=== PATIENT | female | born 1945 | race Caucasian/White ===

== ENCOUNTER 2017-04-14 23:52 | Inpatient (IN) | payer OTHER ==
[~2017-04-14] VITALS: Ht 154.9 cm; Wt 90.7 kg
[~2017-04-14 23:52] MED LIST: MOBIC7.5 M1 PO
[2017-04-15 00:57] LABS: ABSOLUTE BASOPHIL COUNT 0.1 /CUMM (0.0-0.2); ABSOLUTE EOSINOPHIL COUNT 0 /CUMM (0.0-0.7); ABSOLUTE GRANULOCYTE CT 4.6 /CUMM (1.4-6.5); ABSOLUTE LYMPH COUNT 0.6 /CUMM (1.2-3.4); BASOPHIL % 0.9 % (0.0-2.0); EOSINOPHIL % 0.3 % (0-5); HEMATOCRIT 40.6 % (37-47); MEAN CORPUSCULAR HGB 28.4 PG (27.0-31.0); MEAN CORPUSCULAR HGB CONC 33.9 G/DL (33.0-37.0); MEAN PLATELET VOLUME 7.7 FL (7.4-10.4); PLATELET COUNT 230 /CUMM (130-400); RBC DISTRIBUTION WIDTH 13.8 % (11.5-14.5); RED BLOOD CELL CT 4.84 /CUMM (4.20-5.40); WHITE BLOOD CELL COUNT 6.3 /CUMM (4.8-10.8)
--- NOTE | 2017-04-15 00:58 | ED GENERAL ADULT ---
See Addendum History of Present Illness General Chief Complaint: General Adult Stated Complaint: GENERAL VISIT Source: patient, family, EMS Exam Limitations: no limitations Vital Signs & Intake/Output Vital Signs & Intake/Output Vital Signs Date Time Temp Pulse Resp B/P B/P Pulse O2 O2 Flow FiO2 Mean Ox Delivery Rate 04/15 0744 86 180/74 04/15 0609 97.5 85 20 162/68 96 04/15 0303 81 22 175/73 96 04/15 0142 97.5 94 18 20365 04/15 0046 97.5 94 18 5 Room Air Allergies Coded Allergies: Penicillins (Severe, HIVES 01/12/17) Uncoded Allergies: SEAFOOD (Severe, ABDOMINAL PAIN 01/12/17) Triage Note: PER EMS HAS BEEN CALLED TO HOUSE 3 TIMES TODAY FOR MULTIPLE CALLS YESTERDAY, HAS BEEN MED COMPLIANT SINCE STAYING WITH SON AND DAUGHTER IN [place], PT [facility] [place] Triage Nurses Notes Reviewed? yes Onset: Abrupt Duration: day(s): (1), constant, continues in ED, getting worse Timing: multiple episodes today Injury Environment: home Severity: mild, moderate Severity Numbers: 6 No Modifying Factors: none LMP (ages 10-50): post menopausal : No Patient currently breastfeeds: No HPI: 71-year-old female past medical history of hypertension and chronic pain presents for evaluation after multiple falls. Patient's son reports that EMS was called the patient's house 3 separate times today for falls. Patient states that she had slid out of the chair 3 different times and was unable to get up. She reports that she feels weakness in her legs and pain in her bilateral groin and pelvis. She denies any direct trauma to the area. She states that she was on the ground for 2 hours for the longest time before EMS arrived. No chest pain or shortness of breath she did not hit her head or lose consciousness. She also reports being noncompliant with her medications. She states that her several days ago. She feels like she is unable to walk due to this weakness and pain in her legs. She lives at home by herself. (Buster JANSEN,Torey) Reconcile Medications Clotrimazole (Lotrimin AF) 1 % CREAM..G. 1 FRIDA TOP BID to umbilicus apply to affected area(s) x 10 days Meloxicam (Mobic) 7.5 MG TABLET 1 TAB PO DAILY KNEE PAIN (Deandre ROLAND,Francis Brian) Past History Travel History Traveled to [place] past 21 day No Medical History Any Pertinent Medical History? 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 No (Torey Heller) Review of Systems Review of Systems Constitutional: Reports: weakness. EENTM: Reports: no symptoms. Respiratory: Reports: no symptoms. Cardiovascular: Reports: no symptoms. GI: Reports: see HPI, abdominal pain. Genitourinary: Reports: no symptoms. Musculoskeletal: Reports: see HPI, joint pain, muscle pain. Skin: Reports: no symptoms. Neurological/Psychological: Reports: no symptoms. Hematologic/Endocrine: Reports: no symptoms. Immunologic/Allergic: Reports: no symptoms. All Other Systems: Reviewed and Negative (Torey Heller) Physical Exam Physical Exam General Appearance: well developed/nourished, no apparent distress, alert, awake , obese Head: atraumatic, normal appearance Eyes: Bilateral: normal appearance, PERRL, EOMI. Ears, Nose, Throat: normal pharynx, normal ENT inspection, hearing grossly normal Neck: normal inspection, supple, full range of motion, no midline tenderness Respiratory: normal breath sounds, chest non-tender, no respiratory distress, lungs clear Cardiovascular: regular rate/rhythm, normal peripheral pulses Peripheral Pulses: 2+ radial (R), 2+ radial (L) Gastrointestinal: normal bowel sounds, soft, no organomegaly, tenderness ( BILATERAL PELVIS ), PT HAS A REDUCIBLE UMBILICAL HERNIA. IT IS ERYTHEMATOUS Back: normal inspection, normal range of motion, no vertebral tenderness Extremities: normal inspection, normal range of motion, no edema Neurologic/Psych: no motor/sensory deficits, awake, alert, oriented x 3 Skin: intact, normal color, warm/dry Lymphatic: no anterior cervical robert Core Measures ACS in differential dx? No CVA/TIA Diagnosis: No Sepsis Present: No Sepsis Focused Exam Completed? No (Torey Heller) Progress Differential Diagnoses I considered the following diagnoses in my evaluation of the patient: [ Depression, hypertensive urgency, gait instability, electrolyte abnormality, fracture, muscle strain, rhabdomyolysis, muscle strain, muscle spasm, osteoarthritis] Plan of Care: Orders Procedure Date/time Status Heart Healthy Diet 04/[address] in observation 04/15 216 Active Patient Data 04/15 216 Active PT Evaluate & Treat 04/15 152 Active CASE MANAGEMENT CONSULT 04/15 152 Active EKG 04/15 44 Active CREATINE PHOSPHOKINASE 04/15 42 Complete COMPREHENSIVE METABOLIC PANEL 04/15 22 Complete CBC WITHOUT DIFFERENTIAL 04/15 22 Complete Current Medications Sig/Kelle Start time Last Medication Dose Stop Time Status Admin Amlodipine Besylate 10 MG DAILY 04/15 1000 AC (Norvasc) Labetalol HCl 300 MG BID 04/15 1000 AC (Trandate) Lisinopril 10 MG DAILY 04/15 1000 AC (Prinivil) Metformin HCl 850 MG BID 04/15 1000 AC (Glucophage) Clotrimazole 1 FRIDA BID 04/15 209 AC (Lotrimin) Cephalexin 500 MG Q6 04/15 154 CAN (Keflex 500MG Cap) Laboratory Tests 04/15/17 0512: Troponin I Cancelled 04/15/1743: Creatine Kinase Cancelled 04/15/1741: Anion Gap 11, Estimated GFR 54 L, BUN/Creatinine Ratio 16.0, Glucose 151 H, Calcium 9.2, Total Bilirubin 0.6, AST 36, ALT 31, Alkaline Phosphatase 89, Creatine Kinase 289 H, Total Protein 6.0 L, Albumin 3.7, Globulin 2.3, Albumin /Globulin Ratio 1.6, CBC w Diff NO MAN DIFF REQ, RBC 4.84, MCV 84.0, MCH 28.4, RDW 13.8, MPV 7.7, Gran % 73.0, Lymphocytes % 9.4 L, Monocytes % 16.4 H, Eosinophils % 0.3, Basophils % 0.9, Absolute Granulocytes 4.6, Absolute Lymphocytes 0.6 L, Absolute Monocytes 1.0 H, Absolute Eosinophils 0, Absolute Basophils 0.1, PUBS MCHC 33.9 Patient seen and evaluated. She slipped out of a chair on 3 separate occasions today could not get up. She was at home by herself. EMS came to her house 3 times. She is reporting weakness in her legs and pain in her bilateral pelvis. She did not hit her head and lose consciousness. She is alert and oriented 3. No chest pain shortness of breath. Her blood work is unremarkable. CT scan of the pelvis is pending. Patient will then be ambulate. Patient is hypertensive. She is on not comply with her meds. She'll be given a dose of PO labetaloL. Patient will then see physical therapy in the morning. CT scan shows umbilical hernia with possible cellulitis. Patient will be covered with cephalexin every 6 hours. Patient sent up to Dr. Prather pending re-eval in the morning. Diagnostic Imaging: Viewed by Me: CT Scan. Discussed w/RAD: CT Scan. Radiology Impression: PATIENT: GLO MENDOZA PRESENT AGE: 71 PATIENT ACCOUNT NO: [id number] : 43 LOCATION: [facility] ORDERING PHYSICIAN: Torey JANSEN SERVICE DATE: 04/15/17 EXAM TYPE: CAT - CT ABD & PELVIS W/O IV CONTRAS CT ABDOMEN AND PELVIS WITHOUT CONTRAST CLINICAL INFORMATION: Umbilical hernia that is erythematous and painful. COMPARISON: None available. TECHNIQUE: Multidetector volumetric imaging was performed from the superior aspect of the liver through the pubic symphysis. Sagittal and coronal reformatted images were obtained on the technologist's workstation. FINDINGS: The lung bases are clear. Limited evaluation of the unenhanced liver, spleen, adrenal glands, and pancreas reveals no definite abnormality. The gallbladder is surgically absent. The kidneys are symmetric in size without evidence of hydronephrosis or nephrolithiasis. Exophytic cyst arising from the lower pole of the right kidney. Tiny hiatal hernia. The large and small bowel are normal in caliber without evidence of mechanical obstruction. No focal inflammatory changes adjacent to the large or the small bowel. There is no free air and there is no intra-abdominal free fluid. No mesenteric or retroperitoneal adenopathy. Extensive atherosclerotic calcification throughout the intra-abdominal and pelvic vasculature. The pelvic viscera are normal. There is a uterine calcification. No pelvic adenopathy. No free fluid within the pelvis. There are no acute osseous abnormalities. Degenerative changes throughout the thoracolumbar spine. There is a fat-containing umbilical hernia measuring up to 4.6 cm TV by 4.1 cm AP. There is a calcification along the left anterolateral wall of the hernia sac and there is mild stranding within the hernia sac that is nonspecific. There are no drainable fluid collections. IMPRESSION: There is a fat-containing umbilical hernia measuring up to 4.6 cm TV by 4.1 cm AP. There is a calcification along the left anterolateral wall of the hernia sac and there is mild stranding within the hernia sac that is nonspecific which may indicate cellulitis in light of the history. There are no drainable fluid collections. There are no bowel loops within the hernia sac. DICTATED BY: Francis Pinto MD DATE/TIME DICTATED:04/15/17129 ELECTRIC MOTOR REPAIRER:PASCUAL DATE/TIME TRANSCRIBED:04/15/17129 CONFIDENTIAL, DO NOT COPY WITHOUT APPROPRIATE AUTHORIZATION. Initial ED EKG: SINUS RHYTHM, PROBABLE LEFT ATRIAL ABN, PROBABLE LVH, BORDERLINE T WAVE ABN INFERIOR LEADS Hand-Off Endorsed To: Luis Prather MD Endorsed Time: 015 Pending: other (PT) (Torey Heller) Differential Diagnoses I considered the following diagnoses in my evaluation of the patient: Hand-Off Endorsed To: Francis Carrera DO Endorsed Time: 07 Pending: consult, other (Luis Prather MD) Departure Departure Disposition: STILL A PATIENT Condition: Stable Referrals: Boom MOSHER,Suzanne Mane (PCP/Family) Departure Forms: Customer Survey General Discharge Information (Torey Heller) Departure Clinical Impression Primary Impression: Gait instability Secondary Impressions: Fungal skin infection, Weakness PA/FINANCIAL ACCOUNTING ANALYST Co-Sign Statement Statement: ED Attending supervision documentation- [x] I saw and evaluated the patient. I have also reviewed all the pertinent lab results and diagnostic results. I agree with the findings and the plan of care as documented in the PA's/FINANCIAL ACCOUNTING ANALYST's documentation. 04/15/17, 2:14am Pt with frequent falls, elevated blood pressure... pt also with candidal type rash on umbilicus, otherwise benign... pt to be held until the AM for PT and case management. [] I have reviewed the ED Record and agree with the PA's/FINANCIAL ACCOUNTING ANALYST's documentation. [] Additions or exceptions (if any) to the PAs/FINANCIAL ACCOUNTING ANALYST's note and plan are summarized below: [] (Luis Prather MD) Departure Prescriptions: Current Visit Scripts Clotrimazole (Lotrimin AF) 1 FRIDA TOP BID #24 GM apply to affected area(s) x 10 days Comments 04/15/17 8:12 AM Observation reevaluation note The patient was signed out to me by Dr. Prather at 7 AM. She denies any pain. She can fully flex her hips. She is just unable to walk at home due to significant weakness, she is pending PT and Case management consultation. (Deandre ROLAND,Francis Torres) Critical Care Note Critical Care Note Critical Care Time: non-applicable (Buster JANSEN,Torey) ED Attending Observation Initial Observation Note: I have seen and personally examined GLO MENDOZA on 04/15/17 at 0214. I agree with the current emergency department documentation. The disposition (admission or discharge) is uncertain at this time, she needs a period of observation for the following reason(s): pt with elevated blodd pressure, likely due to medication non adherance, also with freqent falls, umbilical hernia.... pt merits following he blood pressure. PT and case management to evaluate in the AM. Pt also with incidental candidal type rash on umbilical hernia... will rx with lotrimin. Surgical outpatient followup. The ED Nurse caring for this patient has been personally informed as to what the patient is being observed for. (Crescencio MOSHER,Luis Loyd)
--- NOTE | 2017-04-15 01:38 | CT SCAN REPORT ---
CT ABDOMEN AND PELVIS WITHOUT CONTRAST CLINICAL INFORMATION: Umbilical hernia that is erythematous and painful. COMPARISON: None available. TECHNIQUE: Multidetector volumetric imaging was performed from the superior aspect of the liver through the pubic symphysis. Sagittal and coronal reformatted images were obtained on the technologist's workstation. FINDINGS: The lung bases are clear. Limited evaluation of the unenhanced liver, spleen, adrenal glands, and pancreas reveals no definite abnormality. The gallbladder is surgically absent. The kidneys are symmetric in size without evidence of hydronephrosis or nephrolithiasis. Exophytic cyst arising from the lower pole of the right kidney. Tiny hiatal hernia. The large and small bowel are normal in caliber without evidence of mechanical obstruction. No focal inflammatory changes adjacent to the large or the small bowel. There is no free air and there is no intra-abdominal free fluid. No mesenteric or retroperitoneal adenopathy. Extensive atherosclerotic calcification throughout the intra-abdominal and pelvic vasculature. The pelvic viscera are normal. There is a uterine calcification. No pelvic adenopathy. No free fluid within the pelvis. There are no acute osseous abnormalities. Degenerative changes throughout the thoracolumbar spine. There is a fat-containing umbilical hernia measuring up to 4.6 cm TV by 4.1 cm AP. There is a calcification along the left anterolateral wall of the hernia sac and there is mild stranding within the hernia sac that is nonspecific. There are no drainable fluid collections. IMPRESSION: There is a fat-containing umbilical hernia measuring up to 4.6 cm TV by 4.1 cm AP. There is a calcification along the left anterolateral wall of the hernia sac and there is mild stranding within the hernia sac that is nonspecific which may indicate cellulitis in light of the history. There are no drainable fluid collections. There are no bowel loops within the hernia sac.
[2017-04-15] MEDS ORDERED: LOTRIMIN AF12 GM TOP (04:45)
--- NOTE | 2017-04-16 08:30 | RADIOLOGY REPORT ---
EXAMINATION: XR PORTABLE CHEST CLINICAL INFORMATION: 71-year-old female with fever and weakness. COMPARISON: 01/12/2017 TECHNIQUE: Portable frontal view of the chest was obtained. FINDINGS: The cardiomediastinal silhouette is slightly enlarged, unchanged. Low lung volumes. No focal consolidation, pleural effusion or pneumothorax. No acute osseous abnormality. IMPRESSION: No radiographic evidence of acute pulmonary disease.
[2017-04-16 09:56] LABS: ABSOLUTE BASOPHIL COUNT 0 /CUMM (0.0-0.2); ABSOLUTE EOSINOPHIL COUNT 0 /CUMM (0.0-0.7); ABSOLUTE LYMPH COUNT 0.8 /CUMM (1.2-3.4); ABSOLUTE MONOCYTE COUNT 0.7 /CUMM (0.10-0.60); BASOPHIL % 0.6 % (0.0-2.0); EOSINOPHIL % 0.3 % (0-5); GRANULOCYTE % 65.6 % (42.2-75.2); HEMATOCRIT 36.6 % (37-47); MEAN CORPUSCULAR HGB 28.6 PG (27.0-31.0); MEAN CORPUSCULAR HGB CONC 33.7 G/DL (33.0-37.0); MEAN CORPUSCULAR VOLUME 84.9 FL (81.0-99.0); MEAN PLATELET VOLUME 7.8 FL (7.4-10.4); PLATELET COUNT 210 /CUMM (130-400); RBC DISTRIBUTION WIDTH 14.4 % (11.5-14.5); RED BLOOD CELL CT 4.31 /CUMM (4.20-5.40); WHITE BLOOD CELL COUNT 4.6 /CUMM (4.8-10.8)
[2017-04-16] MEDS ORDERED: LABETALOL HCL300 M1 PO (14:19)
[2017-04-16] MEDS ORDERED: AMLODIPINE BESY10 M1 PO (14:20)
[2017-04-16] MEDS ORDERED: LISINOPRIL10 M1 PO (14:20)
[2017-04-16] MEDS ORDERED: FLUTICASONE PRO16 GM NASB (14:20)
[2017-04-16] MEDS ORDERED: PRAVASTATIN SOD20 M2 PO (14:20)
[2017-04-16] MEDS ORDERED: METFORMIN HCL850 M1 PO (14:20)
--- NOTE | 2017-04-16 14:37 | History & Physical ---
Ángel Abad 04/16/17 1437: General Information and HPI MD Statement: I have seen and personally examined GLO MENDOZA and documented this H&P. The patient is a 71 year old F who presented with a patient stated chief complaint of general weakness, mechanical fall and myalgia.[]. Source of Information: patient, old records, EMS Exam Limitations: poor historian History of Present Illness: 71 YO F non smoker with PMH of HTN, DM, multiple falls and chronic generalized pain brought to ED with complain of generalized weakness, mechanical fall and myalgia. Patient reported that she was in her usual state of health one week back when she developed having generalized weakness that is progressively worsening for last 1 week. Patient also developed pain in her muscles especially in thighs since last 1 day. Patient also reported that she fell down while she was walking this morning at home. The patient reported the she is living at home alone, she was walking slow without the assistance of cane or walker. Patient reported she didn't hit her head or face when she fell down. Patient is a poor historian and she didn't know if she lost her consciousness or she was confused after the fall. Patient reported that her son called the ambulance after fall and they brought her to ED. In ED note patient mentioned that she was on ground for 2 hours before EMS arrived. Patient also reported that she is noncompliant with her medication. She doesn't know if she was taking any antihypertensive or antidiabetic medications. Patient denied any chest pain, short of breath, nausea, vomiting, lightheadedness, loss of consciousness, trauma to head or face, sick contact, diarrhea, abdominal pain, seizures and dysuria. Patient reported that she fell down 3 times last month. Patient usually goes to [facility] and she is following primary care physician regularly. In past patient got gallbladder surgery and colonoscopy at [facility] according to patient. ED course: Vitals: Temperature 97.5, pulse 94, blood pressure 203/65, oxygen saturation 96% room air Labs: WBC count 6.3, hemoglobin 13.8, hematocrit 40.6, platelet count 230, sodium 141, potassium 3.7, BUN 16, creatinine 1.0, glucose 151, BUN/creatinine ratio 16.0, calcium 9.2, AST 36, ALT 31, creatinine kinase 289 Patient received amlodipine, labetalol, lisinopril for high blood pressure. Allergies/Medications Allergies: Coded Allergies: Penicillins (Severe, HIVES 01/12/17) Uncoded Allergies: SEAFOOD (Severe, ABDOMINAL PAIN 01/12/17) Home Med list Amlodipine Besylate 10 MG TABLET 1 TAB PO DAILY HTN (Reported) Clotrimazole (Lotrimin AF) 1 % CREAM..G. 1 FRIDA TOP BID to umbilicus apply to affected area(s) x 10 days Fluticasone Propionate 50 MCG/ACTUATION SPRAY.SUSP 2 SPRAY NASB DAILY SOB ( Reported) Labetalol HCl 300 MG TABLET 1 TAB PO BID BP (Reported) Lisinopril 10 MG TABLET 1 TAB PO DAILY HTN (Reported) Meloxicam (Mobic) 7.5 MG TABLET 1 TAB PO DAILY KNEE PAIN Metformin HCl 850 MG TABLET 1 TAB PO BID DM (Reported) Pravastatin Sodium 20 MG TABLET 1 TAB PO DAILY CHOLESTEROL (Reported) Past History Travel History Traveled to [place] past 21 day No Medical History Neurological: NONE EENT: NONE Cardiovascular: hypertension Respiratory: NONE Gastrointestinal: NONE Hepatic: NONE Renal: NONE Musculoskeletal: CHRONIC GENERALIZED PAIN Psychiatric: NONE Endocrine: NONE Blood Disorders: NONE Cancer(s): NONE 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 EENTM: Reports: no symptoms. Cardiovascular: Reports: no symptoms. Respiratory: Reports: no symptoms. GI: Reports: no symptoms. Genitourinary: Reports: no symptoms. Musculoskeletal: Reports: muscle pain. Neurological/Psychological: Reports: no symptoms. Exam & Diagnostic Data Last 24 Hrs of Vital Signs/I&O Vital Signs Date Time Temp Pulse Resp B/P B/P Pulse O2 O2 Flow FiO2 Mean Ox Delivery Rate 04/16 1315 97.2 71 20 129/58 95 Room Air 04/16 1231 Room Air 04/16 1201 Room Air 04/16 1101 97.8 72 20 119/58 95 Room Air 04/16 0911 99.8 78 20 132/78 04/16 0911 99.8 78 20 132/78 04/16 0911 99.8 78 20 132/78 04/16 0840 99.8 78 20 132/78 96 Room Air 04/16 0830 99.8 04/16 0623 100.5 04/16 0615 100.5 79 20 132/64 94 Room Air 04/16 0058 98.0 77 18 123/62 93 Room Air 04/15 2240 100.0 88 18 163/67 04/15 2240 100.0 88 20 163/67 95 Room Air 04/15 1900 99.5 78 18 140/52 95 Room Air 04/15 1801 99.0 98 16 184/76 93 Room Air 04/15 1531 97.3 76 16 144/65 95 Room Air Physical Exam General Appearance Alert, Oriented X3, Cooperative, No Acute Distress Skin Temp/Moisture Exam: Warm/Dry Sepsis Skin Exam (color): Normal for Ethnicity HEENT Atraumatic, PERRLA, EOMI Neck Supple Cardiovascular Normal S1, Normal S2 Lungs Clear to Auscultation Abdomen Soft, No Tenderness, para umbilical hernia and possible omphalitis Neurological Normal Speech, Strength at 5/5 X4 Ext, Normal Tone, Sensation Intact Extremities No Edema Last 24 Hrs of Labs/Jamie: Laboratory Tests 04/16/17 0946: Anion Gap 9, Estimated GFR 32 L, BUN/Creatinine Ratio 19.4, Glucose 133 H, Calcium 8.6, Creatine Kinase Pending, CBC w Diff NO MAN DIFF REQ, RBC 4.31, MCV 84.9, MCH 28.6, RDW 14.4, MPV 7.8, Gran % 65.6, Lymphocytes % 17.6 L, Monocytes % 15.9 H, Eosinophils % 0.3, Basophils % 0.6, Absolute Granulocytes 3.0, Absolute Lymphocytes 0.8 L, Absolute Monocytes 0.7 H, Absolute Eosinophils 0, Absolute Basophils 0, PUBS MCHC 33.7 04/16/17 0840: Urine Color YEL, Urine Clarity CLDY H, Urine pH 5.5, Ur Specific [place] >= 1.030, Urine Protein 30 H, Urine Ketones TRACE H, Urine Nitrite NEG, Urine Bilirubin NEG@ICTO, Urine Urobilinogen 0.2, Ur Leukocyte Esterase TRACE H, Ur Microscopic SEDIMENT EXAMINED, Urine WBC RARE, Ur Epithelial Cells MANY H, Urine Bacteria FEW H, Urine Hemoglobin NEG, Urine Glucose NEG Microbiology 04/16 1458 URINE ROUT: Urine Culture - ORD Assessment/Plan Assessment: 71 YO F non smoker with PMH of HTN, DM, multiple falls and chronic generalized pain brought to ED with complain of generalized weakness, mechanical fall and myalgia. Patient reported that she was in her usual state of health one week back when she developed having generalized weakness that is progressively worsening for last 1 week. Patient also developed pain in her muscles especially in thighs since last 1 day. We will keep the patient under observation on general medicine floor and may be patient needs admission if she spikes fever. we will address her mechanical fall and acute kidney injury. Mechanical fall: -Fall precautions -We will check the orthostatic vitals. -We'll follow the MRI brain to rule out any transient ischemic brain injury. -We will discontinue any medication that decreasing patient blood pressure that led to fall. -We'll follow the CPK to rule out any rhabdomyolysis as patient was on the floor for several after the fall -We will follow the MRI results considering patients weakness of the legs. Acute kidney injury: -Probably due to dehydration -We'll follow the input and output -We will avoid any nephrotoxic medication -We will hold the lisinopril and we will resume later on. -We'll follow the BEP Hypokalemia: -We will replete Potassium -We'll follow the BEP tomorrow. Umbilical hernia and cellulitis: -Umbilical hernia is non obstructive. -cellulitis around umbilicus possible omphilitis. we will monitor. -If patient spikes fever then we will start antibiotics. History of diabetes mellitus: -We will hold the oral hypoglycemic agents. -Accu-Cheks -Insulin NovoLog on sliding scale Uncontrolled hypertension: -Probably patient is not compliant to medication. -We will hold the lisinopril considering patient's acute kidney injury. -We will continue labetalol and amlodipine -We will monitor the blood pressure regularly and adjust the doses of the medication accordingly. DVT prophylaxis: Mechanical and subcutaneous heparin. CODE STATUS: DNR/DNI As Ranked By This Provider Problem List: 1. Gait instability 2. Weakness 3. ELVER (acute kidney injury) Core Measures/Misc (01/06) Acute Coronary Syndrome ACS Diagnosis: No Congestive Heart Failure Congestive Heart Failure Diagnosis No Cerebrovascular Accident CVA/TIA Diagnosis: No VTE (View Protocol) VTE Risk Factors Age>40 No Mechanical VTE Prophylaxis d/t N/A MechProphylax Ordered No VTE Pharm Prophylaxis d/t NA PharmProphylax ordered Sepsis (View protocol) Sepsis Present: No Ul Orlando MOSHER,Wilfrid 04/16/17 1734: Resident Review Statement Resident Statement: examined this patient, discussed with web design intern, reviewed EMR data (avail) Other Findings: 71-year-old female with past medical history significant for hypertension, diabetes mellitus on oral hypoglycemic agent, multiple falls, generalized pain and mild GS came to emergency department with chief complaint of generalized weakness which is progressively getting worse for the last 1 week and 3 falls in the last 1 month. Patient has never been admitted to [facility] before and follows up for her care at [facility]. Patient has been here in emergency department since April 15. Patient's 4 days ago. We need to obtain more history from patient's son Juan A. Vitals in emergency department, patient afebrile currently but did have a temperature spike of 100.5 in the morning, currently no tachycardia, currently no significant tachypnea, systolic blood pressure was in 200s and diastolic in 60s on the day of ED admission, currently systolic blood pressure in the 140s and diastolic in 60s, oxygen saturation of 95-97% on room air. On examination patient was alert and oriented to person place and time. Dry mucous membranes, S1 and S2 audible without any murmurs, overall clear lungs, grossly intact neurological examination other than 4 x 5 strength in all extremities, no significant abdominal tenderness, reducible umbilical hernia with mild erythema noticed around it. No significant bilateral lower extremity edema. Labs significant for white count 4.6, no significant bandemia, hemoglobin 12.4 hematocrit 36.6, platelets 210, initially on ED admission no significant electrolyte abnormality other than borderline creatinine of 1 and potassium 3.7, current labs show potassium dropped to 3.4 and creatinine increased to 1.6 and BUN 31, CK increased from 289-334. Imaging in emergency department showed, CAT scan abdomen, fat-containing umbilical hernia measuring up to 4.6 cm TV by 4.1 cm AP and no acute cardiopulmonary findings or chest x-ray. Patient was admitted as an observation in general medicine floor for the management of following problems Gait instability/multiple falls Weakness/lethargy Acute kidney injury History of diabetes mellitus Uncontrolled HTN Patient has never been admitted to [facility] before. Past medical history is limited but patient did have a CT head without contrast in January which showed no acute intracranial pathology but diffuse periventricular deep white matter low-attenuation consistent with ischemic small acid disease was noticed. Patient has history of multiple falls in the past and currrently she had almost 3 falls in the last one month. -Most likely Mechanical falls vs orthostaics (secondary to decreased by mouth intake after the 4 days ago ) vs neurological - Check Orthostatics - Head of Bed at 30 degrees. - Head CT in December 2016 rules out any acute Intracranial bleed or masses. - Physical Therapy - Fall Precautions - Brain MRI - We'll consider neurological evaluation if positive brain MRI - Will get Flu test for lethargy and weakness Acute kidney injury Acute kidney injury likely secondary to dehydration and decreased by mouth intake. We will hold nephrotoxic medications. We will hold lisinopril for now. We will aggressively hydrate the patient and follow-up BEP. Hypokalemia Will replace electrolytes. No recent or current diarrhea. History of diabetes mellitus We'll hold oral hypoglycemic agent for now. Start low-dose insulin sliding scale and Accu-Cheks Uncontrolled HTN Likely secondary to non-compliance. Hold Lisinopril. We will continue with Amlodipine and Labatalol. Patient wants to be DNI Patient is on diabetic diet Patient is on pain management Patient is on Alps and subcutaneous heparin for DVT prophylaxis Cass MOSHER,Nancy 04/16/171946: Attending MD Review Statement Attending Statement Attending MD Statement: examined this patient, discuss w/resident/PA/SCIENTIFIC SOFTWARE ENGINEER, agreed w/resident/PA/SCIENTIFIC SOFTWARE ENGINEER, reviewed EMR data (avail), discussed with nursing, amended to note Attending Assessment/Plan: Patient is a 71-year-old female with history of tuc-cvtoawn-nkfzutkft diabetes mellitus, hypertension, chronic pain syndrome and multiple falls. According to the ER record patient was brought to the emergency room by EMS. Son had reported that patient had following on 3 different occasions the day of presentation. Patient is a poor historian and is unable to rreport a reliable timeline when giving history. It appears patient presented to the emergency room in the late hours of April 14. She was seen and evaluated in emergency room just after midnight yesterday April 15. No evidence of fractures on examination and no acute cause of her fall. She however was not discharged home as she was unable to ambulate. ER records show that patient was monitored in the emergency room all through yesterday April 15 awaiting evaluation by the case management service. This morning she was seen by case management, physical therapy consultation was obtained. According to physical therapist patient was found to be below her functional status at baseline and recommendations are for discharge to residential facility. Routine labs were done this morning outpatient was found to have an acute kidney injury not present on initial evaluation in the emergency room. Today April 16 her creatinine was up to 1.6 from 1.0 yesterday. Based on this was referred to the inpatient medical service for further evaluation and management. Records show that patient was in the emergency room in December following a similar fall. She gives a history of that time that her left leg gave way. She initially implies that her left leg was weaker during her fall yesterday however on further questioning it appears that both legs are weak. During evaluation in December head CT showed no acute pathology other than chronic ischemic changes. Patient was not hospitalized at that time and was discharged home. Patient claims that at baseline she mobilizes unassisted without the use of acute or walker however she does admit to falling frequently. She reports that it was the time she fell and was on the ground for 2 days. It is unclear if this is indeed accurate. She however did not appear perturbed by this stating that she was okay and crawled around her home. It is unclear how accurate this is. She gives a history of left knee weakness and located and states that she was evaluated by the orthopedic service and outpatient and told she had calcium in her knees. She reports that joint injections were recommended as a possibility for the future. She currently denies any pain in her joints. She denies any swelling or redness. In the Emergency room CT abdomen and pelvis was done on account of abdominal pain. Patient however denies having any abdominal pain. She was found to have an abdominal hernia with questionable umbilical cellulitis. In the emergency room patient was noted to have a temperature of 100.5. She denies fever or chills. Denies cough or shortness of breath. Denies diarrhea. Denies dysuria. Chest x-ray limited show showed no acute pathology. On initial arrival to the emergency room patient was markedly hypertensive his systolic blood pressure in the 200s. She reports forgetting to take her blood pressure medications while at home. Blood pressure improved in the emergency room. Gen. appearance: Obese, not in any acute distress. Heart: S1-S2 regular Lungs: Good entry bilaterally, clear to auscultation Abdomen: Obese, soft, nontender with normal bowel sounds. Reducible umbilical hernia palpated. Mild erythema no more than 2 cm in diameter. Nontender. No discharge. Extremities: Trace pedal edema bilaterally no joint swelling or tenderness. No joint erythema. Neurologic: Power is 4 over 5 bilateral upper and lower extremities. Sensation intact globally. Problems: 1. Fever 2. Acute kidney injury 3. Mild rhabdomyolysis 4. Recurrent falls 5. Subjective lower extremity weakness 6. Oem-tfelhdj-baddrjhyn diabetes mellitus 7. Hypertension 8. Poor medication compliance Plan: -Patient was placed on observation status but may require inpatient admission in the future given her fever and need to further work this up. -Obtain blood and urine cultures. -Hold off antibiotic therapy for now. If patient spikes fever or becomes hemodynamically unstable, start on broad-spectrum antibiotic therapy. -Monitor umbilical site daily. -Hydrate with intravenous fluids. Repeat serum chemistry and CPK level in a.m. -Continue follow-up by the physical therapist service while she remains hospitalized. Will likely require short-term rehabilitation at the residential facility upon discharge. -Would recommend an MRI of the brain given her history of recurrent lower extremity weakness and falls. -We'll hold off imaging of her knees currently in the absence of any active complaint of pain or evidence of joint inflammation. -Continue her antihypertensive regimen.
[2017-04-16 22:46] VITALS: BP 132/60
--- NOTE | 2017-04-17 07:22 | PN- Housestaff ---
[facility] 04/17/17 0721: Subjective Follow-up For: Mechanical fall Acute kidney injury Influenza infection Subjective: No overnight events. Patient remained afebrile overnight. Patient seen and examined this morning. She was lying in bed comfortably. She denied any chest pain, short of breath, nausea, vomiting, chills, fever, abdominal pain and dysuria. Patient having positive influenza flu test and we started her on Tamiflu. If patient spikes fever we will do blood cultures. We are going to extend the observation for today. Review of Systems Constitutional: Reports: no symptoms. EENTM: Reports: no symptoms. Cardiovascular: Reports: no symptoms. Respiratory: Reports: no symptoms. Gastrointestinal: Reports: no symptoms. Genitourinary: Reports: no symptoms. Musculoskeletal: Reports: no symptoms. Neurological/Psychological: Reports: no symptoms. Objective Last 24 Hrs of Vital Signs/I&O Vital Signs Date Time Temp Pulse Resp B/P B/P Pulse O2 O2 Flow FiO2 Mean Ox Delivery Rate 04/17 0748 98.2 81 20 138/64 91 Room Air 04/16 2246 98.7 73 20 132/60 97 04/16 2152 73 132/60 04/16 2120 98.7 04/16 2021 100.4 04/16 2000 100.4 81 16 138/65 94 Room Air 04/16 1808 95 Room Air Room Air 04/16 1731 98.0 77 20 144/65 97 Room Air 04/16 1524 98.0 76 20 141/62 95 Room Air 04/16 1315 97.2 71 20 129/58 95 Room Air 04/16 1231 Room Air 04/16 1201 Room Air Intake & Output 04/17 1600 04/17 0800 04/17 0000 Intake Total 240 200 Output Total Balance 240 200 Intake, Oral 240 200 Physical Exam General Appearance: Alert, Oriented X3, Cooperative, No Acute Distress Skin Temp/Moisture Exam: Warm/Dry HEENT: Atraumatic, PERRLA, EOMI Neck: Supple Cardiovascular: Normal S1, Normal S2 Lungs: Decreased breath sounds Abdomen: Soft, No Tenderness Neurological: Normal Speech, Strength at 5/5 X4 Ext, Normal Tone, Sensation Intact Extremities: No Edema Assessment/Plan Assessment: 71 YO F non smoker with PMH of HTN, DM, multiple falls and chronic generalized pain brought to ED with complain of generalized weakness, mechanical fall and myalgia. Patient reported that she was in her usual state of health one week back when she developed having generalized weakness that is progressively worsening for last 1 week. Patient also developed pain in her muscles especially in thighs since last 1 day. We will keep the patient under observation on general medicine floor and may be patient needs admission if she spikes fever. we will address her mechanical fall and acute kidney injury. Mechanical fall: -Fall precautions -We will check the orthostatic vitals. -We'll follow the MRI brain to rule out any transient ischemic brain injury. -We will discontinue any medication that decreasing patient blood pressure that led to fall. -We'll follow the CPK to rule out any rhabdomyolysis as patient was on the floor for several after the fall -We will follow the MRI results considering patients weakness of the legs. Acute kidney injury: -Probably due to dehydration -We'll follow the input and output -We will avoid any nephrotoxic medication -We will hold the lisinopril and we will resume later on. -We'll follow the BEP Hypokalemia: -We will replete Potassium -We'll follow the BEP tomorrow. Umbilical hernia and cellulitis: -Umbilical hernia is non obstructive. -cellulitis around umbilicus possible omphilitis. we will monitor. -If patient spikes fever then we will start antibiotics. History of diabetes mellitus: -We will hold the oral hypoglycemic agents. -Accu-Cheks -Insulin NovoLog on sliding scale Uncontrolled hypertension: -Probably patient is not compliant to medication. -We will hold the lisinopril considering patient's acute kidney injury. -We will continue labetalol and amlodipine -We will monitor the blood pressure regularly and adjust the doses of the medication accordingly. Posterior influenza flu test: -We will start Tamiflu -If patient spikes fever then we'll do cultures. DVT prophylaxis: Mechanical and subcutaneous heparin. CODE STATUS: DNR/DNI Problem List: 1. ELVER (acute kidney injury) 2. Fall 3. Weakness Pain Ratin Pain Location: none Pain Goal: Pain 4 or less Pain Plan: tylenol for mild pain Tomorrow's Labs & Rationales: cbc/bep Nancy Odell MD 04/17/17 1248: Attending MD Review Statement Attending Statement Attending MD Statement: examined this patient, discuss w/resident/PA/FOREIGN LANGUAGES DEPARTMENT CHAIR, agreed w/resident/PA/FOREIGN LANGUAGES DEPARTMENT CHAIR, reviewed EMR data (avail), discussed with nursing, discussed with case mgmt, amended to note Attending Assessment/Plan: Patient's if her mental status was checked yesterday and found to be positive. Chest has been started on Tamiflu. She has been afebrile so far today. She remains hemodynamically stable. 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 On examination area of erythema on high bile articles has resolved. There is also appear to be the cause of any systemic infection. Creatinine level has improved with IV hydration and is down to 1.4 today. Her CPK level remains elevated and is actually higher today at 434. Recommendations: -Continue treatment with Tamiflu for influenza -Hydrate with half normal saline at 125 mL an hour for 1 L. -Repeat serum chemistry and CPK level in the morning. -Mobilize patient. -Follow-up MRI of the brain.
[2017-04-17 07:48] VITALS: BP 138/64
[2017-04-17 09:18] LABS: ABSOLUTE BASOPHIL COUNT 0 /CUMM (0.0-0.2); ABSOLUTE EOSINOPHIL COUNT 0.1 /CUMM (0.0-0.7); ABSOLUTE GRANULOCYTE CT 1.9 /CUMM (1.4-6.5); ABSOLUTE LYMPH COUNT 1.2 /CUMM (1.2-3.4); ABSOLUTE MONOCYTE COUNT 0.5 /CUMM (0.10-0.60); BASOPHIL % 1.2 % (0.0-2.0); EOSINOPHIL % 1.4 % (0-5); GRANULOCYTE % 51.4 % (42.2-75.2); HEMATOCRIT 38.8 % (37-47); MEAN CORPUSCULAR HGB 28.6 PG (27.0-31.0); MEAN CORPUSCULAR HGB CONC 33.4 G/DL (33.0-37.0); MEAN CORPUSCULAR VOLUME 85.6 FL (81.0-99.0); MEAN PLATELET VOLUME 8.3 FL (7.4-10.4); PLATELET COUNT 206 /CUMM (130-400); RBC DISTRIBUTION WIDTH 14.6 % (11.5-14.5); RED BLOOD CELL CT 4.53 /CUMM (4.20-5.40); WHITE BLOOD CELL COUNT 3.7 /CUMM (4.8-10.8)
--- NOTE | 2017-04-17 13:26 | MRI REPORT ---
EXAMINATION: MR BRAIN WITHOUT CONTRAST CLINICAL INFORMATION: 71-year-old woman with confusion and recurrent falls. COMPARISON: 01/12/[address] TECHNIQUE: MRI of the brain without contrast was obtained using routine sequences. FINDINGS: Extensive near confluent T2 hyperintense signal is seen throughout the supratentorial and pontine white matter with additional areas of chronic lacunar infarction seen in both basal ganglia, thalami, and the bilateral noble radiata. Findings are nonspecific and felt to be most likely related to advanced chronic microvascular ischemic changes. The ventricles and sulcal spaces are diffusely prominent due to chronic volume loss. No focal reduced diffusion is seen to suggest acute or subacute cerebral ischemia. No intracranial mass, intracerebral edema, intra-axial blood products, midline shift, or extra-axial collection is visualized. Normal arterial and venous vascular flow voids are present. Moderate mucosal thickening is seen in the ethmoid air cells and sphenoid sinus. Mild mucosal thickening is seen in the remaining paranasal sinuses. IMPRESSION: Advanced presumed chronic small vessel ischemic changes. No imaging evidence of acute cerebral ischemia or hemorrhage.
[2017-04-17 14:33] VITALS: BP 118/58
[2017-04-17 14:37] VITALS: BP 118/58
[2017-04-17] MEDS ORDERED: TAMIFLU30 M1 PO (20:59)
[2017-04-17 21:00] VITALS: BP 130/70
--- NOTE | 2017-04-17 21:07 | Patient Discharge Instructions ---
Discharge Instructions General Discharge Information You were seen/treated for: Mechanical fall Acute kidney injury Influenza Watch for these problems: Stuffiness of nose, fall, nausea, vomiting, diarrhea, chest pain, palpitation, abdominal pain and cough with sputum. If you experience any of these symptoms come to ED or call your pcp. Special Instructions: Follow up with your pcp in one week. Follow up with outpatient psychiatry in one week. Follow up with orthopedics surgery as outpatient for left knee pain. Diet Recommended Diet: Diabetic Activity Activity Self Limited: Yes Acute Coronary Syndrome Inclusion Criteria At DC or during hospital stay patient has or had the following: ACS DIAGNOSIS No Discharge Core Measures Meds if any: Prescribed or Continued at Discharge Meds if any: NOT Prescribed or Continued at Discharge Congestive Heart Failure Inclusion Criteria At DC or during hospital stay patient has or had the following: CHF DIAGNOSIS No Discharge Core Measures Meds if any: Prescribed or Continued at Discharge Meds if any: NOT Prescribed or Continued at Discharge Cerebrovascular accident Inclusion Criteria At DC or during hospital stay patient has or had the following: CVA/TIA Diagnosis No Discharge Core Measures Meds if any: Prescribed or Continued at Discharge Meds if any: NOT Prescribed or Continued at Discharge Venous thromboembolism Inclusion Criteria VTE Diagnosis No VTE Type NONE VTE Confirmed by (Test) NONE Discharge Core Measures - Per Current guidelines, there needs to be overlap - treatment for the first 5 days of Warfarin therapy. - If discharged on Warfarin prior to 5 days of - overlap therapy, the patient will need to be - assessed for post discharge needs including - *Post discharge parental anticoagulation - *Warfarin and/or parental anticoagulation education - *Follow up date to check INR post discharge At least 5 days overlap therapy as Inpatient No Meds if any: Prescribed or Continued at Discharge Note: Overlap Therapy is Warfarin and Anticoagulant Meds if any: NOT Prescribed or Continued at Discharge
[2017-04-18 06:30] VITALS: BP 122/60
--- NOTE | 2017-04-18 07:31 | PN- Housestaff ---
[facility]: Subjective Follow-up For: Mechanical fall Acute kidney injury Influenza infection Subjective: No overnight events. Patient remained afebrile overnight. Patient seen and examined this morning. She was lying in bed comfortably. She denied any chest pain, short of breath, nausea, vomiting, abdominal and dysuria. Patient is tolerating food. She had 2 bowel movement yesterday and C. difficile culture was sent. Planning to send the patient to [facility] today and she will follow the C. difficile culture results with her PCP. Review of Systems Constitutional: Reports: no symptoms. EENTM: Reports: no symptoms. Cardiovascular: Reports: no symptoms. Respiratory: Reports: no symptoms. Gastrointestinal: Reports: no symptoms. Genitourinary: Reports: no symptoms. Musculoskeletal: Reports: no symptoms. Neurological/Psychological: Reports: no symptoms. Objective Last 24 Hrs of Vital Signs/I&O Vital Signs Date Time Temp Pulse Resp B/P B/P Pulse O2 O2 Flow FiO2 Mean Ox Delivery Rate 04/18 1015 Room Air 04/18 0800 90 Room Air 04/18 0630 98.4 67 20 122/60 90 Room Air 04/18 0552 94 Room Air 04/18 0000 Nasal 1.0L Cannula 04/17 2226 98.5 20 92 Nasal 1.0L Cannula 04/17 2100 74 130/70 04/17 2045 74 130/70 04/17 1547 Room Air 04/17 1529 Room Air 04/17 1437 77 118/58 04/17 1433 98.1 77 20 118/58 95 Room Air Intake & Output 04/18 1600 04/18 0800 04/18 0000 Intake Total 500 1150 Output Total Balance 500 1150 Intake, IV 250 Intake, Oral 500 900 Number 0 Bowel Movements Physical Exam General Appearance: Alert, Oriented X3, Cooperative, No Acute Distress Skin Temp/Moisture Exam: Warm/Dry HEENT: Atraumatic Neck: Supple Cardiovascular: Normal S1, Normal S2 Lungs: Clear to Auscultation Abdomen: Soft, No Tenderness Neurological: Normal Speech, Strength at 5/5 X4 Ext, Normal Tone, Sensation Intact Extremities: No Edema Assessment/Plan Assessment: 71 YO F non smoker with PMH of HTN, DM, multiple falls and chronic generalized pain brought to ED with complain of generalized weakness, mechanical fall and myalgia. Patient reported that she was in her usual state of health one week back when she developed having generalized weakness that is progressively worsening for last 1 week. Patient also developed pain in her muscles especially in thighs since last 1 day. We will keep the patient under observation on general medicine floor and may be patient needs admission if she spikes fever. we will address her mechanical fall and acute kidney injury. Mechanical fall: -Fall precautions -We will check the orthostatic vitals. -We'll follow the MRI brain to rule out any transient ischemic brain injury. -We will discontinue any medication that decreasing patient blood pressure that led to fall. -We'll follow the CPK to rule out any rhabdomyolysis as patient was on the floor for several after the fall -We will follow the MRI results considering patients weakness of the legs. Acute kidney injury: -Probably due to dehydration -We'll follow the input and output -We will avoid any nephrotoxic medication -We will hold the lisinopril and we will resume later on. -We'll follow the BEP Hypokalemia: -We will replete Potassium -We'll follow the BEP tomorrow. Umbilical hernia and cellulitis: -Umbilical hernia is non obstructive. -cellulitis around umbilicus possible omphilitis. we will monitor. -If patient spikes fever then we will start antibiotics. History of diabetes mellitus: -We will hold the oral hypoglycemic agents. -Accu-Cheks -Insulin NovoLog on sliding scale Uncontrolled hypertension: -Probably patient is not compliant to medication. -We will hold the lisinopril considering patient's acute kidney injury. -We will continue labetalol and amlodipine -We will monitor the blood pressure regularly and adjust the doses of the medication accordingly. Posterior influenza flu test: -We will start Tamiflu -If patient spikes fever then we'll do cultures. DVT prophylaxis: Mechanical and subcutaneous heparin. CODE STATUS: DNR/DNI Problem List: 1. Fall 2. ELVER (acute kidney injury) 3. Weakness Pain Ratin Pain Location: NONE Pain Goal: Remain pain free Pain Plan: TYLENOL FOR MILD PAIN Tomorrow's Labs & Rationales: NONE Nancy Odell MD 04/18/17 1234: Attending Review Statement Attending Statement Attending MD Statement: examined this patient, discuss w/resident/PA/CLINICAL BIOCHEMICAL GENETICIST, agreed w/resident/PA/CLINICAL BIOCHEMICAL GENETICIST, reviewed EMR data (avail), discussed with nursing, discussed with case mgmt, amended to note Attending Assessment/Plan: Resting comfortably not in any acute distress. No issues overnight reported by nursing staff. Remains afebrile and hemodynamically stable. Still complains of malaise. Examination lungs are clear bilaterally. Abdomen is soft and nontender. She has no periumbilical erythema swelling or tenderness. No peripheral edema. Head CT done yesterday to evaluate her complaints of weakness shows no acute pathology. She has evidence of advanced presumed chronic small vessel ischemic changes. She is medically stable to be discharged today. Due to her deconditioning she will be discharged to care home facility for short-term rehabilitation. She has been advised that she will needs to follow- up with her orthopedic service as an outpatient regarding intermittent weakness in left knee. She likely has underlying osteoarthritis according to her conservation with the orthopedic service and was told that she may require steroid injections in the future.
--- NOTE | 2017-04-18 09:14 | Cons- Psychiatry ---
Psychiatric Consult Date of Consult: 04/18/17 Reason for Consult: "Decision-making capacity." History of Present Illness: "My , Jim, just before " 71-year-old female, with a past medical history of hypertension and chronic pain , presented to the emergency department at the end of the day on 04/14/2017, brought in by ambulance for evaluation after multiple falls. She reports having been noncompliant with her medications. Her , who had been in jail care at a assisted, had within the past few days. Allergies: Coded Allergies: Penicillins (Severe, HIVES 01/12/17) Uncoded Allergies: SEAFOOD (Severe, ABDOMINAL PAIN 01/12/17) Current Medications: Current Medications Sig/Kelle Start time Last Medication Dose Route Stop Time Status Admin Acetaminophen 650 MG Q6P PRN 04/16 2359 AC 04/16 PO 202 Amlodipine Besylate 10 MG DAILY 04/15 1000 AC 04/17 PO 0904 Clotrimazole 1 FRIDA BID 04/15 0209 AC 04/17 TOP 2045 Heparin Sodium 5,000 UNIT Q8 04/16 2200 AC 04/18 (Porcine) SC 0617 Insulin Aspart 0 TIDAC 04/17 0800 AC 04/17 SC 1746 Labetalol HCl 300 MG BID 04/15 1000 AC 04/17 PO 2045 Oseltamivir Phosphate 30 MG BID 04/17 0130 AC 04/17 PO 04/21 0129 2045 Sodium Chloride 1,000 ML Q8H 04/17 1545 DC 04/17 IV 04/17 2344 1910 Past History Past Medical History Neurological: NONE EENT: NONE Cardiovascular: hypertension Respiratory: NONE Gastrointestinal: NONE Hepatic: NONE Renal: NONE Musculoskeletal: CHRONIC GENERALIZED PAIN Psychiatric: NONE Endocrine: NONE Blood Disorders: NONE Cancer(s): NONE COMMERCIAL ELECTRICIAN/Reproductive: NONE Past Surgical History Surgical History: non-contributory Psychosocial History Physical Limitations (Interventions): Multiple falls, here for evaluation. Psychiatric Treatment History Psych Treatment Psychiatric Treatment No Risk Factors: age (under 24/over 65), chronic/serious med cond., lives alone Substance Use/Abuse History Drug Use/Abuse Substances Used/Abused No Substance Abuse Treatment Substance Abuse Treatment Past Substance Abuse [place] No Assessment/Plan Mental Status Orientation: Person, Place, Situation Affect: WNL Speech: WNL Neuro-vegetative: WNL Mental Status Exam: Patient presents today in a calm, cooperative manner. Alert and oriented to person, place, time, and situation. Her speech is well articulated, goal- directed, average in rate, volume and tone. At the time of our visit this morning, the patient was being treated for flu. She is also grieving her 's . He in a assisted just a few days ago. He had been wheelchair-bound, she grieves not only for his , but also for what had become of him in his later years. When asked about depression and anxiety, she stated "I haven't even had a chance to think about that." She denies suicidal ideation, homicidal ideation, auditory or visual hallucinations, or paranoid ideation. Of note, states that at home she sleeps very poorly, getting no more than 3 or 4 hours of sleep at night. She reports that her appetite, energy, interest, has been fine. Her concentration, has been "okay, not that great." The Mini-Mental state examination (MMSE) was administered. The patient received a score of 25 out of 30. She declined to attempt to count down from 100 by sevens, or to spell the word "world" backwards, stating that she could not concentrate right now. Lab Results: Laboratory Tests 04/18 04/17 04/16 0930 0814 2020 Chemistry Sodium (137 - 145 mmol/L) 139 140 143 Potassium (3.5 - 5.1 mmol/L) 4.2 4.5 4.4 Chloride (98 - 107 mmol/L) 107 109 H 109 H Carbon Dioxide (22 - 30 mmol/L) 23 23 24 Anion Gap (5 - 16) 9 8 10 BUN (7 - 17 mg/dL) 16 22 H 31 H Creatinine (0.5 - 1.0 mg/dL) 0.9 1.1 H 1.4 H Estimated GFR (>60 ml/min) > 60 49 L 37 L BUN/Creatinine Ratio (7 - 25 %) 17.8 20.0 22.1 Creatine Kinase (30 - 135 U/L) 372 H 434 H Hematology CBC w Diff NO MAN DIFF REQ WBC (4.8 - 10.8 /CUMM) 3.7 L RBC (4.20 - 5.40 /CUMM) 4.53 Hgb (12.0 - 16.0 G/DL) 13.0 Hct (37 - 47 %) 38.8 MCV (81.0 - 99.0 FL) 85.6 MCH (27.0 - 31.0 PG) 28.6 RDW (11.5 - 14.5 %) 14.6 H Plt Count (130 - 400 /CUMM) 206 MPV (7.4 - 10.4 FL) 8.3 Gran % (42.2 - 75.2 %) 51.4 Lymphocytes % (20.5 - 51.1 %) 31.9 Monocytes % (1.7 - 9.3 %) 14.1 H Eosinophils % (0 - 5 %) 1.4 Basophils % (0.0 - 2.0 %) 1.2 Absolute Granulocytes (1.4 - 6.5 /CUMM) 1.9 Absolute Lymphocytes (1.2 - 3.4 /CUMM) 1.2 Absolute Monocytes (0.10 - 0.60 /CUMM) 0.5 Absolute Eosinophils (0.0 - 0.7 /CUMM) 0.1 Absolute Basophils (0.0 - 0.2 /CUMM) 0 PUBS MCHC (33.0 - 37.0 G/DL) 33.4 04/16 04/16 1728 0946 Chemistry Sodium (137 - 145 mmol/L) 140 Potassium (3.5 - 5.1 mmol/L) 3.4 L Chloride (98 - 107 mmol/L) 101 Carbon Dioxide (22 - 30 mmol/L) 29 Anion Gap (5 - 16) 9 BUN (7 - 17 mg/dL) 31 H Creatinine (0.5 - 1.0 mg/dL) 1.6 H Estimated GFR (>60 ml/min) 32 L BUN/Creatinine Ratio (7 - 25 %) 19.4 Glucose (65 - 99 mg/dL) 133 H Calcium (8.4 - 10.2 mg/dL) 8.6 Creatine Kinase (30 - 135 U/L) 334 H Vitamin B12 (239 - 931 pg/mL) > 1000 H 25-OH Vitamin D Total (30 - 100 ng/ml) 34.6 Folate (2.76 - 20.0 ng/mL) > 20.0 H Hematology CBC w Diff NO MAN DIFF REQ WBC (4.8 - 10.8 /CUMM) 4.6 L RBC (4.20 - 5.40 /CUMM) 4.31 Hgb (12.0 - 16.0 G/DL) 12.4 Hct (37 - 47 %) 36.6 L MCV (81.0 - 99.0 FL) 84.9 MCH (27.0 - 31.0 PG) 28.6 RDW (11.5 - 14.5 %) 14.4 Plt Count (130 - 400 /CUMM) 210 MPV (7.4 - 10.4 FL) 7.8 Gran % (42.2 - 75.2 %) 65.6 Lymphocytes % (20.5 - 51.1 %) 17.6 L Monocytes % (1.7 - 9.3 %) 15.9 H Eosinophils % (0 - 5 %) 0.3 Basophils % (0.0 - 2.0 %) 0.6 Absolute Granulocytes (1.4 - 6.5 /CUMM) 3.0 Absolute Lymphocytes (1.2 - 3.4 /CUMM) 0.8 L Absolute Monocytes (0.10 - 0.60 /CUMM) 0.7 H Absolute Eosinophils (0.0 - 0.7 /CUMM) 0 Absolute Basophils (0.0 - 0.2 /CUMM) 0 PUBS MCHC (33.0 - 37.0 G/DL) 33.7 Serology Virus Culture Pending 04/16 0840 Urines Urine Color (YEL,AMB,STR) YEL Urine Clarity (CLEAR) CLDY H Urine pH (5.0 - 8.0) 5.5 Ur Specific Mchenry (1.001 - 1.035) >= 1.030 Urine Protein (NEG,<30 MG/DL) 30 H Urine Ketones (NEG) TRACE H Urine Nitrite (NEG) NEG Urine Bilirubin (NEG) NEG@ICTO Urine Urobilinogen (0.1 - 1.0 EU/dl) 0.2 Ur Leukocyte Esterase (NEG) TRACE H Ur Microscopic SEDIMENT EXAMINED Urine WBC (0 - 2 /HPF) RARE Ur Epithelial Cells (NONE,FEW) MANY H Urine Bacteria (NEG/NONE) FEW H Urine Hemoglobin (NEG) NEG Urine Glucose (N MG/DL) NEG Diffential Diagnosis: No psychiatric diagnosis at this time. Impression: Today I was asked to do a capacity evaluation. The question was whether or not the patient was able to understand her medical choices, and implications. This is a calm, pleasant, personable 71-year-old woman, hospitalized after multiple falls at home. She reports that she currently lives alone in her own home. Her had been living at a assisted, until he last week. She has 2 sons, who offer support. A Mini-Mental exam was conducted, she received a score of 25, declining at this time to try to spell a word backwards or count down by sevens. The patient verbalized understanding that she had not been adherent to her home medication directions, stating "I want to take my medications. I have to take the medicine, I know that." Patient states that she has been distracted of late because of her 's infirmity, and recent . She states that she would welcome a visiting nurse to come to her home to help her with medication administration. She also verbalized understanding that she has been falling frequently. She has agreed to to go to a rehab facility after inpatient discharge. She is considering moving in with her younger son. She also says that she has an [employer] cell phone, with an emergency button if she should fall again. Capacity eval: 1. Patient is able to verbalize an understanding of the choices that await her, including going to rehab which she has agreed to, perhaps a decision to move in with her younger son, she verbalized understanding of the hazards of living on her own. 2. Patient verbalized an understanding of the relevant information. 3. Patient verbalized an appreciation of her present situation, and consequences. 4. Patient verbalized an ability to reason about her treatment choices. Provisional Treatment Plan: 1. Patient would benefit from visiting nurse service to help with medication adherence, after discharge from rehab.
--- NOTE | 2017-04-18 13:24 | Discharge Summary ---
Visit Information Visit Dates Admission Date: 04/15/17 Discharge Date: 04/20/17 Hospital Course Course Attending Physician: Nancy Odell MD Primary Care Physician: Boom MOSHER,Suzanne Mane Consulting Request: Consulting Specialty: Psychiatry Hospital Course: 71-year-old female with past medical history significant for hypertension, diabetes mellitus on oral hypoglycemic agent, multiple falls, generalized pain and mild GS came to emergency department with chief complaint of generalized weakness which is progressively getting worse for the last 1 week and 3 falls in the last 1 month. Patient has never been admitted to [facility] before and follows up for her care at [facility]. Patient has been here in emergency department since April 15. Patient's 4 days ago. We need to obtain more history from patient's son Juan A. Vitals in emergency department, patient afebrile currently but did have a temperature spike of 100.5 in the morning, currently no tachycardia, currently no significant tachypnea, systolic blood pressure was in 200s and diastolic in 60s on the day of ED admission, currently systolic blood pressure in the 140s and diastolic in 60s, oxygen saturation of 95-97% on room air. On examination patient was alert and oriented to person place and time. Dry mucous membranes, S1 and S2 audible without any murmurs, overall clear lungs, grossly intact neurological examination other than 4 x 5 strength in all extremities, no significant abdominal tenderness, reducible umbilical hernia with mild erythema noticed around it. No significant bilateral lower extremity edema. Labs significant for white count 4.6, no significant bandemia, hemoglobin 12.4 hematocrit 36.6, platelets 210, initially on ED admission no significant electrolyte abnormality other than borderline creatinine of 1 and potassium 3.7, current labs show potassium dropped to 3.4 and creatinine increased to 1.6 and BUN 31, CK increased from 289-334. Imaging in emergency department showed, CAT scan abdomen, fat-containing umbilical hernia measuring up to 4.6 cm TV by 4.1 cm AP and no acute cardiopulmonary findings or chest x-ray. Patient was admitted as an observation and later admitted in general medicine floor for the management of following problems Gait instability/multiple falls Weakness/lethargy Acute kidney injury History of diabetes mellitus Uncontrolled HTN Gait instability/multiple falls Patient has never been admitted to [facility] before. Past medical history is limited but patient did have a CT head without contrast in January which showed no acute intracranial pathology but diffuse periventricular deep white matter low-attenuation consistent with ischemic small acid disease was noticed. Patient has recent history of multiple falls in the past and currrently she had almost 3 falls in the last one month which were most likely Mechanical falls vs orthostaics (secondary to decreased by mouth intake after the 4 days ago) vs unlikely neurological (no focal neurological deficit on examination). Orthostatics were checkedand were neagtive. MRI brain was ordered which showed advanced presumed chronic small vessel ischemic changes. No imaging evidence of acute cerebral ischemia or hemorrhage. Weakness/lethargy/ influenza B positive Patient presented with extreme lethargy and weakness. We ruled out organic causes. She had normal folate vitamin B12 and 25 hydroxy vitamin D levels. Patient was tested positive for influenza type B. She is started on Tamiflu and will complete the course. Capacity evaluation was done by psychiatry and patient was cleared t make her own decisions. Acute kidney injury Acute kidney injury was secondary to dehydration and decreased by mouth intake. Creatinine on admission was 1.6 which progressively improved with hydration 0.9. We held lisinopril on admmission. Hypokalemia Secondary to decreased by mouth intake. Will replaced electrolytes by mouth. Patient did not have any recent or current diarrhea. History of diabetes mellitus We'll hold oral hypoglycemic agent on admission and start the patient on low- dose insulin sliding scale with Accu-Cheks Uncontrolled HTN Likely secondary to non-compliance. We had Lisinopril secondary to acute kidney injury. We continued with Amlodipine and Labatalol with adequate blood pressure control. Patient was to be DNI Patient was on diabetic diet Patient was on pain management Patient was on Alps and subcutaneous heparin for DVT prophylaxis Allergies: Coded Allergies: Penicillins (Severe, HIVES 01/12/17) Uncoded Allergies: SEAFOOD (Severe, ABDOMINAL PAIN 01/12/17) Disposition Summary Disposition Principal Diagnosis: Influenza Acute kidney injury Mechanical fall Additional Diagnosis: Diabetes mellitus Hypertension Discharge Disposition: SNF Discharge Instructions General Discharge Information Code Status: Do Not Resucitate/Intubat Patient's Diet: Diabetic diet Patient's Activity: Self-limited Follow-Up Instructions/Appts: Follow up with pcp in one week. Follow up with orthopedic in one week for knee pain Follow with psychiatry in one week Medications at Discharge Discharge Medications: Continue taking these medications: Meloxicam (Mobic) 7.5 MG TABLET 1 Tablet ORAL DAILY Qty = 15 Labetalol HCl (Labetalol HCl) 300 MG TABLET 1 Tablet ORAL TWICE DAILY Qty = 180 Lisinopril (Lisinopril) 10 MG TABLET 1 Tablet ORAL DAILY Qty = 30 Pravastatin Sodium (Pravastatin Sodium) 20 MG TABLET 1 Tablet ORAL DAILY Qty = 30 Metformin HCl (Metformin HCl) 850 MG TABLET 1 Tablet ORAL TWICE DAILY Qty = 60 Amlodipine Besylate (Amlodipine Besylate) 10 MG TABLET 1 Tablet ORAL DAILY Qty = 30 Fluticasone Propionate (Fluticasone Propionate) 50 MCG/ACTUATION SPRAY.SUSP 2 [place] Both sides of nose DAILY Qty = 16 Start taking the following new medications: Oseltamivir Phosphate (Tamiflu) 30 MG CAPSULE 1 Tablet ORAL TWICE DAILY Qty = 15 No Refills Clotrimazole (Lotrimin AF) 1 % CREAM..G. 1 Application On the skin TWICE DAILY Qty = 24 No Refills Instructions: apply to affected area(s) x 10 days Copies To: Boom MOSHER,Suzanne Mane Attending Review Statement Documenting Attending: Nancy Odell MD Other Findings: Discharged in stable condition.
[2017-04-18 14:09] VITALS: BP 116/42
[2017-04-18 22:38] VITALS: BP 112/60
[2017-04-19 06:53] VITALS: BP 122/78
--- NOTE | 2017-04-19 07:41 | PN- Housestaff ---
[place] 04/19/17 0740: Subjective Follow-up For: Mechanical fall Acute kidney injury Influenza infection Subjective: No overnight events. Patient remained afebrile overnight. Patient seen and examined this morning. She denied any chest pain, short of breath, nausea, vomiting, weakness, chills, fever, cough, abdominal pain and dysuria. Patient is tolerating diet. Patient is out of the bed and walking around fine. We are waiting for the bed placement STR. Review of Systems Constitutional: Reports: no symptoms. EENTM: Reports: no symptoms. Cardiovascular: Reports: no symptoms. Respiratory: Reports: no symptoms. Gastrointestinal: Reports: no symptoms. Genitourinary: Reports: no symptoms. Musculoskeletal: Reports: no symptoms. Neurological/Psychological: Reports: no symptoms. Objective Last 24 Hrs of Vital Signs/I&O Vital Signs Date Time Temp Pulse Resp B/P B/P Pulse O2 O2 Flow FiO2 Mean Ox Delivery Rate 04/19 0653 97.8 67 18 122/78 94 Room Air 04/18 2238 98.2 89 18 112/60 96 Room Air 04/18 2108 69 128/60 04/18 1409 97.6 72 18 116/42 95 04/18 1111 Room Air 04/18 1015 Room Air Intake & Output 04/19 1600 04/19 0800 04/19 0000 Intake Total 240 Output Total Balance 240 Intake, Oral 240 Number 0 Bowel Movements Patient 200 lb Weight Weight Reported by Patient Measurement Method Physical Exam General Appearance: Alert, Oriented X3, Cooperative, No Acute Distress Skin Temp/Moisture Exam: Warm/Dry HEENT: Atraumatic, PERRLA, EOMI Neck: Supple Cardiovascular: Normal S1, Normal S2 Lungs: Clear to Auscultation Abdomen: Soft, No Tenderness Neurological: Normal Speech, Normal Tone, Sensation Intact Extremities: No Edema Assessment/Plan Assessment: 71 YO F non smoker with PMH of HTN, DM, multiple falls and chronic generalized pain brought to ED with complain of generalized weakness, mechanical fall and myalgia. Patient reported that she was in her usual state of health one week back when she developed having generalized weakness that is progressively worsening for last 1 week. Patient also developed pain in her muscles especially in thighs since last 1 day. We will keep the patient under observation on general medicine floor and may be patient needs admission if she spikes fever. we will address her mechanical fall and acute kidney injury. Mechanical fall: -Fall precautions -We will check the orthostatic vitals. -We'll follow the MRI brain to rule out any transient ischemic brain injury. -We will discontinue any medication that decreasing patient blood pressure that led to fall. -We'll follow the CPK to rule out any rhabdomyolysis as patient was on the floor for several after the fall -We will follow the MRI results considering patients weakness of the legs. Acute kidney injury: -Probably due to dehydration -We'll follow the input and output -We will avoid any nephrotoxic medication -We will hold the lisinopril and we will resume later on. -We'll follow the BEP Hypokalemia: -We will replete Potassium -We'll follow the BEP tomorrow. Umbilical hernia and cellulitis: -Umbilical hernia is non obstructive. -cellulitis around umbilicus possible omphilitis. we will monitor. -If patient spikes fever then we will start antibiotics. History of diabetes mellitus: -We will hold the oral hypoglycemic agents. -Accu-Cheks -Insulin NovoLog on sliding scale Uncontrolled hypertension: -Probably patient is not compliant to medication. -We will hold the lisinopril considering patient's acute kidney injury. -We will continue labetalol and amlodipine -We will monitor the blood pressure regularly and adjust the doses of the medication accordingly. Posterior influenza flu test: -We will start Tamiflu -If patient spikes fever then we'll do cultures. DVT prophylaxis: Mechanical and subcutaneous heparin. CODE STATUS: DNR/DNI Problem List: 1. ELVER (acute kidney injury) 2. Weakness 3. Fall Pain Ratin Pain Location: NONE Pain Goal: Remain pain free Pain Plan: TYLENOL FOR MILD PAIN Tomorrow's Labs & Rationales: NONE Consulting Request: Consulting Specialty: Psychiatry Nancy Odell MD 04/19/17 1313: Attending MD Review Statement Attending Statement Attending MD Statement: examined this patient, discuss w/resident/PA/ASSEMBLER MECHANICAL ORDNANCE, agreed w/resident/PA/ASSEMBLER MECHANICAL ORDNANCE, reviewed EMR data (avail), discussed with nursing, discussed with case mgmt, amended to note Attending Assessment/Plan: patient seen and examined. Resting comfortably not in any acute distress. No issues overnight reported by nursing staff. She remains afebrile hemodynamically stable. Denies any respiratory complaints. Denies nausea vomiting. Denies abdominal pain. Denies dysuria. She is medically stable to be discharged to a group home facility for short-term rehabilitation however the [facility] wants her to have completed 3 days of therapy with Tamiflu. She should be ready to go tomorrow. Urine cultures currently growing Escherichia coli however 20 50,000 colony- forming units. She has no urinary complaints. This likely recommence asymptomatic bacteriuria. Her ELVER has resolved. She'll be discharged tomorrow to the group home facility for short-term rehabilitation.
[2017-04-19] MEDS ORDERED: TAMIFLU30 M1 PO (09:04)
[2017-04-19 15:08] VITALS: BP 118/68
[2017-04-19 23:02] VITALS: BP 122/59
[2017-04-20 06:43] VITALS: BP 122/60
--- NOTE | 2017-04-20 07:03 | PN- Housestaff ---
[place] 04/20/17 0702: Subjective Follow-up For: Mechanical fall Acute kidney injury(resolved) Influenza infection(improving) Subjective: No overnight events. Patient remained afebrile overnight. Patient seen and examined this morning. She denied any chest pain, short of breath, nausea, vomiting, weakness, chills, fever, cough, abdominal pain and dysuria. Patient is tolerating diet. Patient is out of the bed and walking around fine. She will go to [facility] today. Review of Systems Constitutional: Reports: no symptoms. EENTM: Reports: no symptoms. Cardiovascular: Reports: no symptoms. Respiratory: Reports: no symptoms. Gastrointestinal: Reports: no symptoms. Genitourinary: Reports: no symptoms. Musculoskeletal: Reports: no symptoms. Neurological/Psychological: Reports: no symptoms. Objective Last 24 Hrs of Vital Signs/I&O Vital Signs Date Time Temp Pulse Resp B/P B/P Pulse O2 O2 Flow FiO2 Mean Ox Delivery Rate 04/20 0643 98.1 62 18 122/60 92 Room Air 04/19 2302 97.9 74 18 122/59 94 Room Air 04/19 2142 64 18 118/68 04/19 1600 Room Air 04/19 1508 97.2 64 18 118/68 93 Room Air 04/19 1204 Room Air 04/19 1152 Room Air 04/19 1010 148/72 04/19 1010 70 148/72 Intake & Output 04/20 0800 04/20 0000 04/19 1600 Intake Total 200 600 Output Total 400 200 Balance -200 400 Intake, Oral 200 600 Number 2 Bowel Movements Output, Urine 400 200 Patient 200 lb Weight Physical Exam General Appearance: Alert, Oriented X3, Cooperative, No Acute Distress Skin Temp/Moisture Exam: Warm/Dry HEENT: Atraumatic, PERRLA, EOMI Neck: Supple Cardiovascular: Normal S1, Normal S2 Lungs: Clear to Auscultation Abdomen: Soft, No Tenderness Neurological: Normal Speech, Normal Tone, Sensation Intact Extremities: No Edema Assessment/Plan Assessment: 71 YO F non smoker with PMH of HTN, DM, multiple falls and chronic generalized pain brought to ED with complain of generalized weakness, mechanical fall and myalgia. Patient reported that she was in her usual state of health one week back when she developed having generalized weakness that is progressively worsening for last 1 week. Patient also developed pain in her muscles especially in thighs since last 1 day. We will keep the patient under observation on general medicine floor and may be patient needs admission if she spikes fever. we will address her mechanical fall and acute kidney injury. Mechanical fall: -Fall precautions -We will check the orthostatic vitals. -We'll follow the MRI brain to rule out any transient ischemic brain injury. -We will discontinue any medication that decreasing patient blood pressure that led to fall. -We'll follow the CPK to rule out any rhabdomyolysis as patient was on the floor for several after the fall -We will follow the MRI results considering patients weakness of the legs. Acute kidney injury:(resolved) -Probably due to dehydration -We'll follow the input and output -We will avoid any nephrotoxic medication -We will hold the lisinopril and we will resume later on. -We'll follow the BE -Her creatinine level is 0.9. Hypokalemia: -We will replete Potassium -We'll follow the BEP tomorrow. Umbilical hernia and cellulitis: -Umbilical hernia is non obstructive. -cellulitis around umbilicus possible omphilitis. we will monitor. -If patient spikes fever then we will start antibiotics. History of diabetes mellitus: -We will hold the oral hypoglycemic agents. -Accu-Cheks -Insulin NovoLog on sliding scale Uncontrolled hypertension: -Probably patient is not compliant to medication. -We will hold the lisinopril considering patient's acute kidney injury. -We will continue labetalol and amlodipine -We will monitor the blood pressure regularly and adjust the doses of the medication accordingly. Posterior influenza flu test: -We will start Tamiflu -If patient spikes fever then we'll do cultures. DVT prophylaxis: Mechanical and subcutaneous heparin. CODE STATUS: DNR/DNI Problem List: 1. Fall 2. ELVER (acute kidney injury) 3. Weakness Pain Ratin Pain Location: none Pain Goal: Remain pain free Pain Plan: tylenol for mild pain Tomorrow's Labs & Rationales: none Consulting Request: Consulting Specialty: Psychiatry Nancy Odell MD 04/20/17 1004: Attending Review Statement Attending Statement Attending MD Statement: examined this patient, discuss w/resident/PA/NURSE ASSESSOR, agreed w/resident/PA/NURSE ASSESSOR, reviewed EMR data (avail), discussed with nursing, discussed with case mgmt, amended to note Attending Assessment/Plan: Resting comfortably not in acute distress. No issues overnight reported by nursing staff. She is not requiring oxygen supplementation. She remains afebrile and hemodynamically stable. On examination lungs remain clear to auscultation bilaterally. She has no peripheral edema. She is medically stable to be discharged today. She will complete her course of Tamiflu at the [facility] facility and will undergo short-term rehabilitation before being transitioned home.
[2017-04-20 12:40] VITALS: BP 128/80
== END 2017-04-20 14:25 | DRG 683 ==
LOC: ERH 23:52 → ERHI 04-15 02:16 → CANBEDREQ 04-15 19:51 → ERHI 04-15 20:09 → EDBEDREQ 04-16 17:36 → ERHI 04-16 17:57 → ENRESERV 04-16 18:10 → ENTRNSPT 04-16 20:22 → EDTRNSPT 04-16 20:31 → EDTRNSPTSTS 04-16 20:31 → EDTRNSPT 04-16 20:51 → EDBEDREQ 04-16 20:56 → EDTRNSPT 04-16 21:06 → 2NA 04-16 21:22 → CMPTRNSPT 04-16 21:48 → 2NA 04-18 14:06 → ENPENDDIS 04-20 10:09 → 2NA 04-20 14:25
PROVIDERS: Emergency Medicine; Physician Assistant Medical; Student in an Organized Health Care Education/Training Program
DX: N17.9 Acute kidney failure, unspecified (principal); M62.82 Rhabdomyolysis; E11.9 Type 2 diabetes mellitus without complications; E86.0 Dehydration; E87.6 Hypokalemia; J10.1 Influenza due to other identified influenza virus with other respiratory manifestations; K42.9 Umbilical hernia without obstruction or gangrene; Z66 Do not resuscitate; R26.89 Other abnormalities of gait and mobility; E66.9 Obesity, unspecified; Z68.37 Body mass index [BMI] 37.0-37.9, adult; Z79.84 Long term (current) use of oral hypoglycemic drugs; I10 Essential (primary) hypertension; Z91.14 Patient's other noncompliance with medication regimen
CPT/HCPCS: 2NAP; 70551; 36415; 74176; 81001; 82436; 87040; 87070; 87086; 87804; 87804-59; 93005; 93010; 97110-GP; 97116-GO; 97116-GP; 97161-GP; 97530-GO; 97530-GP; G8978-GP; G8979-GP; J1644; J7040; Q2036